=== PATIENT | male | born 1970 | race Caucasian/White ===

== ENCOUNTER 2019-08-18 16:59 | Emergency (ER) | payer BC ==
[2019-08-18 17:03] VITALS: BP 162/96; PULSE 94; RESP 18; TEMP 98
--- NOTE | 2019-08-18 17:28 | XR ---
EXAMINATION TYPE: XR knee complete LT DATE OF EXAM: 08/18/2019 COMPARISON: NONE HISTORY: Fall. Pain. TECHNIQUE: 3 views FINDINGS: I see no fracture nor dislocation. Joint spaces are normal. There is no sign of joint effus ion. IMPRESSION: Negative left knee exam.
--- NOTE | 2019-08-18 17:35 | ED ---
Lower Extremity Injury HPI - General Source: patient Mode of arrival: ambulatory Limitations: no limitations <Xochitl Shah - Last Filed: 08/19/19 00:45> <Petra Luevano - Last Filed: 08/21/19 23:26> - General Chief Complaint: Extremity Injury, Lower Stated Complaint: left knee injury Time Seen by Provider: 08/18/19 17:05 - History of Present Illness Initial Comments: 48yo male presents emergency department for chief complaint of left knee pain x 1 day. She states she has had chronic posterior pain in his knee when he works out and does squats. Patient states this been ongoing for years. Patient denies any swelling. Patient states that today at 1130 when his dog attempted to lurch at the mailroom assistant he fell to his knee. Patient states it increasing posterior knee pain denies dislocation. Patient denies pain at the hip or ankle.Patient denies head injury, loss consciousness injury to the neck back and abdomen. Patient has no other complaints denies numbness tingling loss sensation. Patient denies any redness. Patient denies any other areas of injury. Remaining review system negative. Upon small on arrival and laboratory. (Xochitl Shah) - Related Data Allergies Allergy/AdvReac Type Severity Reaction Status Date / Time No Known Allergies Allergy Verified 08/18/19 17:03 Review of Systems ROS Other: All systems not noted in ROS Statement are negative. <Xochitl Shah - Last Filed: 08/19/19 00:45> ROS Other: All systems not noted in ROS Statement are negative. <Petra Luevano - Last Filed: 08/21/19 23:26> ROS Statement: Those systems with pertinent positive or pertinent negative responses have been documented in the HPI. Past Medical History Past Medical History: Hypertension History of Any Multi-Drug Resistant Organisms: None Reported Past Surgical History: Adenoidectomy Past Psychological History: No Psychological Hx Reported Smoking Status: Former smoker Past Alcohol Use History: None Reported Past Drug Use History: None Reported <Xochitl Shah - Last Filed: 08/19/19 00:45> General Exam Limitations: no limitations <Xochitl Shah - Last Filed: 08/19/19 00:45> - General Exam Comments Initial Comments: General: The patient is awake and alert, in no distress, and does not appear acutely ill. Eye: Pupils are equal, round and reactive to light, extra-ocular movements are intact. No nystagmus. There is normal conjunctiva bilaterally. No signs of icterus. Ears, nose, mouth and throat: There are moist mucous membranes and no oral lesions. No raccoon or Medley sign. Neck: The neck is supple, there is no tenderness or JVD. Cardiovascular: There is a regular rate and rhythm. No murmur, rub or gallop is appreciated. Respiratory: Lungs are clear to auscultation, respirations are non-labored, breath sounds are equal. No wheezes, stridor, rales, or rhonchi. Musculoskeletal: Normal gross inspection of the knees bilaterally. Patient is tenderness to palpation of the posterior left knee joint. No soft tissue swelling appreciated. Patient is able to flex extend and weight-bear with the left knee. Patient has negative logroll. Patient has full range motion distal to the injury site. Sensation intact both proximal distal to injury site. Strength preserved. Compartments soft and compressible. No abrasions or large contusions or ecchymosis noted. +2 dorsalis pedis is pulses equal comparison bilaterally. Extensor mechanism intact no evidence of foot drop. Neurological: A&O x 3. CN II-XII intact grossly, There are no obvious motor or sensory deficits. Coordination appears grossly intact. Speech is normal. Skin: Skin is warm and dry and no rashes or lesions are noted. Psychiatric: Cooperative, appropriate mood & affect, normal judgment. (Xochitl Shah) Course Vital Signs 08/18/19 17:00 Temperature 98.0 F Pulse Rate 94 Respiratory 18 Rate Blood Pressure 162/96 O2 Sat by Pulse 98 Oximetry Medical Decision Making <Xochitl Shah - Last Filed: 08/19/19 00:45> <Petra Luevano - Last Filed: 08/21/19 23:26> - Medical Decision Making 48 yo male who presented for chief complaint of left knee pain. Patient denies history of fall. Patient denies dislocation. Patient neurovascularly intact. Patient states that he feels he aggravated his chronic left knee pain. Patient imaging states negative for acute osseous process. Patient is no noted laxity of the knee joint. Able to weight-bear and ambulate. At this time we will compress with Wade bandage give Rice instruction as well as orthopedic surgery follow-up. I discussed the case with a provider Dr. Luevano who i sagreeable with this plan patient discharged appearing well agreeable with care, and return parameters/follow-up. (Xochitl Shah) I was available for consultation in the emergency department. The history and p hysical exam were done by the midlevel provider. I was consulted for this patients care. I reviewed the case with the midlevel provider and based on their presentation of the patient, I agree with the assessment, medical decision making and plan of care as documented. Chart was dictated using [employer] dictation software. Attempts were made to correct any dictation errors however some typographical errors may persist. (Petra Luevano) Disposition Is patient prescribed a controlled substance at d/c from ED?: No Time of Disposition: 17:45 <Xochitl Shah - Last Filed: 08/19/19 00:45> <Petra Luevano - Last Filed: 08/21/19 23:26> Clinical Impression: Left knee pain, Left knee injury, Fall Disposition: HOME SELF-CARE Condition: Good Instructions (If sedation given, give patient instructions): Knee Sprain (ED) Additional Instructions: Please use medication as discussed. Please follow-up with family doctor in the next 2 days, if symptoms persist please seek orthopedic referral for further evaluation. Please return to emergency room if the symptoms increase or worsen or for any other concerns. Referrals: Caitlyn Wilkerson MD [Primary Care Provider] - 1-2 days
== END 2019-08-18 17:52 | disposition home or self-care (01) ==
LOC: EC 16:59
DX: S89.92XA Unspecified injury of left lower leg, initial encounter (principal); Z87.891 Personal history of nicotine dependence; W19.XXXA Unspecified fall, initial encounter; Y92.009 Unspecified place in unspecified non-institutional (private) residence as the place of occurrence of the external cause
CPT/HCPCS: 99283

== ENCOUNTER → 2019-08-31 | Outpatient (CLI) | payer BC ==
--- NOTE | 2019-08-31 14:15 | US ---
EXAMINATION TYPE: US venous doppler duplex LE LT DATE OF EXAM: 08/31/2019 2:01 PM COMPARISON: NONE CLINICAL HISTORY: left lower ext pain and swelling M79.662 R22.42. Left calf swelling. Started Xare lto today. No redness. SIDE PERFORMED: Left TECHNIQUE: The lower extremity deep venous system is examined utilizing real time linear array sonog dominic with graded compression, doppler sonography and color-flow sonography. VESSELS IMAGED: External Iliac Vein (EIV) Common Femoral Vein Deep Femoral Vein Greater Saphenous Vein * Femoral Vein Popliteal Vein Small Saphenous Vein * Proximal Calf Veins (* superficial vessels) Left Leg: Negative for DVT Grayscale, color doppler, spectral doppler imaging performed of the deep veins of the left lower extr emity. There is normal flow, compressibility, vascular waveforms. IMPRESSION: No ultrasound evidence for acute DVT in the left lower extremity.
== END ==
LOC: RADUSWWP 13:38
PROVIDERS: ATTEND Internal Medicine
DX: M79.662 Pain in left lower leg (principal); R22.42 Localized swelling, mass and lump, left lower limb

== ENCOUNTER 2020-02-15 16:46 | Emergency (ER) | payer BC ==
[2020-02-15 16:49] VITALS: TEMP 98.4
--- NOTE | 2020-02-15 17:36 | XR ---
EXAMINATION TYPE: XR chest 2V DATE OF EXAM: 02/15/2020 COMPARISON: None HISTORY: 49-year-old male with cough TECHNIQUE: PA and lateral views FINDINGS: The cardiomediastinal silhouette, aorta, and pulmonary vasculature are within normal limits. Mild str antony opacity peripheral right midlung. Otherwise, no consolidation or pleural effusion. IMPRESSION: Mild strandy opacity peripheral right midlung, probably atelectasis or scarring. Otherwise, no acute process.
--- NOTE | 2020-02-15 19:13 | ED ---
General Adult HPI - General Chief complaint: Upper Respiratory Infection Stated complaint: COUGH Time Seen by Provider: 02/15/20 16:50 Source: patient, RN notes reviewed, old records reviewed Mode of arrival: ambulatory Limitations: no limitations - History of Present Illness Initial comments: 49-year-old male patient with ED for chief complaint persistent cough for the last 6 weeks. Patient reports that the cough is dry. Patient denies any chest pain. Patient does report that he has some shortness of breath from time to time mostly with coughing. He denies any pain, fevers, nausea vomiting, or any other complaints states that the cough has not improved however. Denies any sick contacts. Systemic: Pt denies fatigue, fever/chills, rash. Pt denies weakness, night sweats, weight loss. Neuro: Pt denies headache, visual disturbances, syncope or pre-syncope. HEENT: Pt denies ocular discharge or irritation, otalgia, rhinorrhea, pharyngitis or notable lymphadenopathy. Cardiopulmonary: Pt denies chest pain, heart palpitations, dyspnea on exertion. Abdominal/GI: Pt denies abdominal pain, n/v/d. : Pt denies dysuria, burning w/ urination, frequency/urgency. Denies new onset urinary or bowel incontinence. MSK: Pt denies myalgia, loss of strength or function in extremities. Neuro: Pt denies new onset weakness, paresthesias. - Related Data Previous Rx's Medication Instructions Recorded Benzonatate [Tessalon Perles] 100 mg PO TID PRN #20 capsule 02/15/20 Allergies Allergy/AdvReac Type Severity Reaction Status Date / Time No Known Allergies Allergy Verified 02/15/20 16:49 Review of Systems ROS Statement: Those systems with pertinent positive or pertinent negative responses have been documented in the HPI. ROS Other: All systems not noted in ROS Statement are negative. Past Medical History Past Medical History: Hypertension History of Any Multi-Drug Resistant Organisms: None Reported Past Surgical History: Adenoidectomy Past Psychological History: No Psychological Hx Reported Smoking Status: Former smoker Past Alcohol Use History: None Reported Past Drug Use History: None Reported General Exam - General Exam Comments Initial Comments: Constitutional: NAD, AOX3, Pt has pleasant affect. HEENT: NC/AT, trachea midline, neck supple, no lymphadenopathy. Posterior pharynx non erythematous, without exudates. External ears appear normal, without discharge. Mucous membranes moist. Eyes PERRLA, EOM intact. There is no scleral icterus. No pallor noted. Cardiopulmonary: RRR, no murmurs, rubs or gallops, no JVD noted. Lungs CTAB in anterior and posterior chowdary. No peripheral edema. Abdominal exam: Abdomen soft and non-distended. Abdomen non-tender to palpation in all 4 quadrants. Bowel sounds active in LLQ. No hepatosplenomegaly. No ecchymosis Neuro: CN II-XII grossly intact. No nuchal rigidity. No raccon eyes, no whitfield sign, no hemotympanum. No cervical spinal tenderness. MSK: No posterior calf tenderness bilaterally, homans sign negative bilaterally. Posterior tibialis and radial pulse +2 bilaterally. Sensation intact in upper and lower extremities. Full active ROM in upper and lower extremities, 5/5 stregnth. Limitations: no limitations Course Vital Signs 02/15/20 02/15/20 16:46 17:13 Temperature 98.4 F Pulse Rate 106 H Respiratory 22 18 Rate Blood Pressure 165/93 O2 Sat by Pulse 99 Oximetry Medical Decision Making - Medical Decision Making 49-year-old male patient with a chief complaint back cough last 6 weeks. Patient vital signs are stable, afebrile. Heart rate 72 on palpation. Physical exam did not display acute pathology. Chest x-ray blade mildly the atelectasis right midline. EKG is nonischemic. Patient was offered further investigations and he declined. Pt states that he mostly wanted to know that he did not have a pneumonia. Patient will be discharged to follow up with primary care provider will be prescribed Tessalon Perles and advised to self quarantined for the next 2 weeks and return to ER if condition worsens in any way. Case discussed with Dr. Camarena - EKG Data -: EKG Interpreted by Me (and Dr. Camarena) EKG Comments: Ventricular rate 101, VA interval 172, QRS 92, QT/QTc 354/459. Sinus tachycardia, otherwise normal EKG. Disposition Clinical Impression: Cough Disposition: HOME SELF-CARE Condition: Stable Instructions (If sedation given, give patient instructions): Acute Cough (ED) Additional Instructions: Follow-up with primary care provider tomorrow. May use Tessalon Perles as needed for cough. Return to ER if condition worsens in any way. Prescriptions: Benzonatate [Tessalon Perles] 100 mg PO TID PRN #20 capsule PRN Reason: Cough Is patient prescribed a controlled substance at d/c from ED?: No Referrals: Caitlyn Wilkerson MD [Primary Care Provider] - 1-2 days
[2020-02-15 19:20] VITALS: BP 121/87; PULSE 94; RESP 20
== END 2020-02-15 19:22 | disposition home or self-care (01) ==
LOC: EC 16:46
DX: J98.11 Atelectasis (principal); Z53.29 Procedure and treatment not carried out because of patient's decision for other reasons; Z87.891 Personal history of nicotine dependence
CPT/HCPCS: 71046; 93005; 99285

== ENCOUNTER 2020-03-11 04:06 | Emergency (ER) | payer BC ==
[2020-03-11 04:13] VITALS: BP 161/100; PULSE 89; RESP 18; TEMP 97.6
--- NOTE | 2020-03-11 05:24 | XR ---
EXAMINATION TYPE: XR chest 1V portable DATE OF EXAM: 03/11/2020 COMPARISON: 02/15/2020 HISTORY: Cough TECHNIQUE: Single view FINDINGS: Heart and mediastinum are normal. Lungs are clear. Diaphragm is normal. Bony thorax is inta ct. IMPRESSION: Normal chest. No change.
[2020-03-11] MEDS ORDERED: predniSONE 20 MG TAB PO STA (06:06)
--- NOTE | 2020-03-11 06:07 | ED ---
URI HPI - General Chief Complaint: Upper Respiratory Infection Stated Complaint: Cough Source: patient Mode of arrival: ambulatory Limitations: no limitations - History of Present Illness Initial Comments: The patient is a 49-year-old male with past medical history of hypertension and depression who presents to the emergency department with reported cough for the past 5 months. He states the cough is worse at night when he lays down to sleep. She occasionally has productive sputum with yellow phlegm. Denies hemoptysis. Denies any chest pain does admit to feeling slightly short of breath. Does admit to chest wall pain from the repetitive coughing. He followed up with his primary care doctor placed him on azithromycin. States that a few days into the medication he started feeling better. He is also prescribed Tessalon Perles. States that the cough has now returned and is even worse. No history of asthma or COPD. Did quits vaping one month ago. Denies abdominal pain, nausea or vomiting. No fevers or chills. No sick contacts with similar symptoms. There are no other alleviating, precipitating or modifying factors - Related Data Previous Rx's Medication Instructions Recorded Benzonatate [Tessalon Perles] 100 mg PO TID PRN #20 capsule 02/15/20 Doxycycline Monohydrate [Monodox] 100 mg PO Q12HR #20 cap 03/11/20 guaiFENesin-Coden 100-10MG/5ML 10 ml PO Q6H PRN 3 Days #120 ml 03/11/20 [Robitussin AC] predniSONE [Deltasone] 20 mg PO BID #10 tab 03/11/20 Allergies Allergy/AdvReac Type Severity Reaction Status Date / Time No Known Allergies Allergy Verified 03/11/20 04:13 Review of Systems ROS Statement: Those systems with pertinent positive or pertinent negative responses have been documented in the HPI. ROS Other: All systems not noted in ROS Statement are negative. Past Medical History Past Medical History: Hypertension Additional Past Medical History / Comment(s): atelectasis, depression History of Any Multi-Drug Resistant Organisms: None Reported Past Surgical History: Adenoidectomy Past Psychological History: No Psychological Hx Reported Smoking Status: Former smoker Past Alcohol Use History: None Reported Past Drug Use History: None Reported General Exam Limitations: no limitations Course Vital Signs 03/11/20 04:08 Temperature 97.6 F Pulse Rate 89 Respiratory 18 Rate Blood Pressure 161/100 O2 Sat by Pulse 99 Oximetry Medical Decision Making - Medical Decision Making Upon arrival the patient is placed into room 10. A thorough history and physical exam was performed. Chest x-ray was performed which demonstrates no acute intrathoracic process. The patient is swabbed for Covid which is zachery rai. I did discuss results with the patient. I will start the patient on prednisone, doxycycline and prescribe him Robitussin-AC to take at night. He does sign an opiate start talking form. He is to continue to use his inhaler every 4 hours. He says pelvis primary care physician in 2-4 days. Return to the chart for any new or worsening symptoms. If his cough persists he may need to have a bronchoscopy therefore to give him follow up information for Dr. Jean's office. The patient remained in stable condition and was discharged home in stable condition - Lab Data Lab Results 03/11/20 Range/Units 04:40 Coronavirus (PCR) Not Detected (Not Detectd) Disposition Clinical Impression: Cough Disposition: HOME SELF-CARE Condition: Stable Instructions (If sedation given, give patient instructions): Bronchospasm (ED) Additional Instructions: Please follow up with your primary care doctor in 2-4 days. If your symptoms do not improve you may need to see a warehouse supervisor 3rd shift. Return to the emergency department for any new or worsening symptoms Prescriptions: predniSONE [Deltasone] 20 mg PO BID #10 tab Doxycycline Monohydrate [Monodox] 100 mg PO Q12HR #20 cap guaiFENesin-Coden 100-10MG/5ML [Robitussin AC] 10 ml PO Q6H PRN 3 Days #120 ml PRN Reason: Cough Is patient prescribed a controlled substance at d/c from ED?: Yes When asked, does pt state using other controlled substances?: No If prescribed controlled substance>3 days was MAPS reviewed?: Prescribed <3 Days If opioid is for acute pain is fill amount 7 days or less?: Yes If Rx opioid, was Start Talking consent form obtained?: Yes Referrals: Caitlyn Wilkerson MD [Primary Care Provider] - 1-2 days Frida Bravo MD [STAFF PHYSICIAN] - 1-2 days Time of Disposition: 06:06
== END 2020-03-11 06:17 | disposition home or self-care (01) ==
LOC: EC 04:06
DX: R05 Cough (principal); I10 Essential (primary) hypertension; R07.89 Other chest pain; Z90.89 Acquired absence of other organs; Z87.891 Personal history of nicotine dependence; Z20.828 Contact with and (suspected) exposure to other viral communicable diseases
CPT/HCPCS: 99283; 87635; 71045; J7512

== ENCOUNTER → 2021-01-26 | Outpatient (CLI) | payer OTHER ==
--- NOTE | 2021-01-26 09:40 | CT ---
EXAMINATION TYPE: CT sinus wo con DATE OF EXAM: 01/26/2021 COMPARISON: NONE HISTORY: persistent cough, nasal drainage. Chronic sinusitis. CT DLP: 698 mGycm. Automated Exposure Control for Dose Reduction was Utilized. TECHNIQUE: CT scan of the sinuses is performed without contrast, axial images are obtained, coronal r eformatted images are also reviewed. FINDINGS: Mild mucosal thickening in the right frontal sinus. Mild mucosal thickening in inferior eth moid sinuses right greater than left . Remainder paranasal sinuses clear without suspicious opacifica tion or air-fluid levels The ostiomeatal complex is narrowed bilaterally due to antral mucosal thicke eri but patent. Nasal septum is significantly deviated to right of midline. Visualized portion of mastoid air cells show no abnormal opacification. The globes are intact bilat erally. Visualized portion of brain parenchyma is unremarkable. IMPRESSION: Mild Chronic paranasal sinus disease. No acute sinusitis currently.
--- NOTE | 2021-01-26 09:52 | XR ---
EXAMINATION TYPE: XR chest 2V DATE OF EXAM: 01/26/2021 COMPARISON: 03/11/2020 HISTORY: 50-year-old male R05, cough TECHNIQUE: Frontal and lateral views FINDINGS: The cardiomediastinal silhouette, aorta, and pulmonary vasculature are within normal limits. Lungs an d pleural spaces are clear. IMPRESSION: No acute cardiopulmonary process.
== END ==
LOC: RADCTMAIN 09:07
PROVIDERS: ATTEND Otolaryngology
DX: J32.9 Chronic sinusitis, unspecified (principal)
CPT/HCPCS: 70486; 71046

== ENCOUNTER → 2023-07-20 | Day surgery (SDC) | payer OTHER ==
[2023-07-15 12:01] VITALS: BMI 31.4
[~2023-07-20] MED LIST: LACTATED RINGERS 1,000 ML IV SCH; LIDOCAINE 1% (10MG/ML) FOR IV START INTRADERMA PRN; LIDOCAINE 2% INJ 20 MG/ML (2 ML VIAL) ONE; MIDAZOLAM 2 MG/2 ML VIAL ONE; PROPOFOL 10 MG/ML 20 ML VIAL IV ONE; fentaNYL (PF) 50 MCG/ML 2 ML AMP ONE
[2023-07-20 10:51] VITALS: TEMP 97
--- NOTE | 2023-07-20 12:13 | P.PCN ---
Date of Procedure: 07/20/23 Procedure(s) Performed: BRIEF HISTORY: Patient is a 52-year-old pleasant white male scheduled for an elective colonoscopy as a part of screening for colon cancer. PROCEDURE PERFORMED: Colonoscopy. PREOPERATIVE DIAGNOSIS: Screening for colon cancer. IV sedation per Anesthesia. PROCEDURE: After informed consent was obtained, the patient, was brought into the endoscopy unit. IV sedation was administered by Anesthesia under continuous monitoring. Digital rectal examination was normal. Initially the Olympus CF-160 flexible video colonoscope was then inserted in the rectum, gradually advanced into the cecum without any difficulty. Careful examination was performed as the scope was gradually being withdrawn. Ileocecal valve and the appendiceal orifice were visualized and appeared normal. Prep was excellent. Mucosa of the cecum, ascending colon, transverse colon, descending colon, sigmoid colon, and rectum appeared normal. Retroflexion was performed in the rectum and no lesions were seen. The patient tolerated the procedure well. IMPRESSION: Normal-appearing colon from rectum to cecum with no evidence of colorectal neoplasia . RECOMMENDATIONS: Findings of this examination were discussed with the patient as well as his family. He was advised to have a repeat screening colonoscopy in 10 years..
[2023-07-20 13:01] VITALS: BP 138/86; PULSE 72; RESP 18
== END ==
LOC: ORWHC2ENDO 10:33
PROVIDERS: ATTEND Internal Medicine Gastroenterology
DX: Z12.11 Encounter for screening for malignant neoplasm of colon (principal); I10 Essential (primary) hypertension; Z79.899 Other long term (current) drug therapy
CPT/HCPCS: 45378; J2250; J3010; J2704; J2001

== ENCOUNTER 2023-10-13 08:39 | Emergency (ER) | payer OTHER ==
[2023-10-13 08:51] VITALS: BP 152/92; PULSE 84; TEMP 97.6
[2023-10-13] MEDS ORDERED: dexAMETHasone 2 MG TAB PO STA (09:03)
--- NOTE | 2023-10-13 09:06 | ED ---
General Adult HPI - General Chief complaint: Upper Respiratory Infection Stated complaint: Sore Throat Source: patient Mode of arrival: ambulatory Limitations: no limitations - History of Present Illness Initial comments: 52 year old healthy male presents with cough, congestion, loss of voice. states symptoms have been present for 4 days. he went to urgent care for symptoms yes terday. today he had loss of voice and was unable to clear the thick secreations from his airway so he came into ED. denies fevers. no vomiting. mild sore throat. - Related Data Home Medications Medication Instructions Recorded Confirmed DULoxetine HCL [Cymbalta] 60 mg PO DAILY 07/15/23 07/20/23 Finasteride [Propecia] 1 mg PO DAILY 07/15/23 07/20/23 amLODIPine [Norvasc] 5 mg PO DAILY 07/15/23 07/20/23 atenoloL [Tenormin] 25 mg PO DAILY 07/15/23 07/20/23 lamoTRIgine [LaMICtal] 25 mg PO DAILY 07/15/23 07/20/23 Allergies Allergy/AdvReac Type Severity Reaction Status Date / Time No Known Allergies Allergy Verified 10/13/23 08:44 Review of Systems ROS Statement: Those systems with pertinent positive or pertinent negative responses have been documented in the HPI. ROS Other: All systems not noted in ROS Statement are negative. Past Medical History Past Medical History: Hypertension Additional Past Medical History / Comment(s): atelectasis History of Any Multi-Drug Resistant Organisms: None Reported Past Surgical History: Adenoidectomy Past Anesthesia/Blood Transfusion Reactions: No Reported Reaction Past Psychological History: Depression Smoking Status: Former smoker Past Alcohol Use History: None Reported Past Drug Use History: None Reported - Past Family History Mother Family Medical History: Cancer General Exam Limitations: no limitations General appearance: alert, in no apparent distress Head exam: Present: atraumatic, normocephalic, normal inspection Eye exam: Present: normal appearance, PERRL, EOMI. Absent: scleral icterus, conjunctival injection, periorbital swelling ENT exam: Present: normal exam, mucous membranes moist, other (hoarse voice. airway patent) Neck exam: Present: normal inspection. Absent: tenderness, meningismus, lymphadenopathy Respiratory exam: Present: normal lung sounds bilaterally. Absent: respiratory distress, wheezes, rales, rhonchi, stridor Cardiovascular Exam: Present: regular rate, normal rhythm, normal heart sounds. Absent: systolic murmur, diastolic murmur, rubs, gallop, clicks GI/Abdominal exam: Present: soft, normal bowel sounds. Absent: distended, tenderness, guarding, rebound, rigid Extremities exam: Present: normal inspection, full ROM, normal capillary refill. Absent: tenderness, pedal edema, joint swelling, calf tenderness Back exam: Present: normal inspection Neurological exam: Present: alert, oriented X3, CN II-XII intact Psychiatric exam: Present: normal affect, normal mood Skin exam: Present: warm, dry, intact, normal color. Absent: rash Course Vital Signs 10/13/23 10/13/23 08:40 09:32 Temperature 97.6 F Pulse Rate 84 Respiratory 20 18 Rate Blood Pressure 152/92 O2 Sat by Pulse 99 Oximetry Medical Decision Making - Medical Decision Making Was pt. sent in by a medical professional or institution (, PA, ASSEMBLY TECHNICIAN, urgent care, hospital, or senior living...) When possible be specific @ -No Did you speak to anyone other than the patient for history (EMS, parent, family, police, friend...)? What history was obtained from this source @ -No Did you review nursing and triage notes (agree or disagree)? Why? @ -I reviewed and agree with nursing and triage notes Were old charts reviewed (outside hosp., previous admission, EMS record, old EKG, old radiological studies, urgent care reports/EKG's, senior living records)? Report findings @ -no Differential Diagnosis (chest pain, altered mental status, abdominal pain women, abdominal pain men, vaginal bleeding, weakness, fever, dyspnea, syncope, heada bolivar, dizziness, GI bleed, back pain, seizure, CVA, palpatations, mental health, musculoskeletal)? @ -covid, flu, pna, strep, viral uri EKG interpreted by me (3pts min.). @ -no X-rays interpreted by me (1pt min.). @ -None done CT interpreted by me (1pt min.). @ -none done U/S interpreted by me (1pt. min.). @ -None done What testing was considered but not performed or refused? (CT, X-rays, U/S, labs)? Why? @ -viral swab - pt refused What meds were considered but not given or refused? Why? @ -None Did you discuss the management of the patient with other professionals (professionals i.e. , PA, ASSEMBLY TECHNICIAN, lab, RT, psych nurse, social media campaign manager, general hardware salesperson, teacher, chairman & chief executive officer, piano case and bench assembler)? Give summary @ -no Was smoking cessation discussed for >3mins.? @ -No Was critical care preformed (if so, how long)? @ -No Were there social determinants of health that impacted care today? How? (Homelessness, low income, unemployed, alcoholism, drug addiction, transportation, low edu. Level, literacy, decrease access to med. care, [facility], rehab)? @ -No Was there de-escalation of care discussed even if they declined (Discuss DNR or withdrawal of care, Hospice)? DNR status @ -No What co-morbidities impacted this encounter? (DM, HTN, Smoking, COPD, CAD, Cancer, CVA, ARF, Chemo, Hep., AIDS, mental health diagnosis, sleep apnea, morbid obesity)? @ -none Was patient admitted / discharged? Hospital course, mention meds given and route, prescriptions, significant lab abnormalities, going to OR and other pertinent info. @ -discharged. pt refused viral swab, agreeable to a dose of decadron. his airway is patent. he has no respiratory distress. he would like no futher workup. patient discharged ins stable condition Undiagnosed new problem with uncertain prognosis? @ -No Drug Therapy requiring intensive monitoring for toxicity (Heparin, Nitro, Insulin, Cardizem)? @ -No Were any procedures done? @ -No Diagnosis/symptom? @ -acute pharyngitis, acute laryngitis, viral uri Acute, or Chronic, or Acute on Chronic? @ -acute Uncomplicated (without systemic symptoms) or Complicated (systemic symptoms)? @ -complicated Side effects of treatment? @ -No Exacerbation, Progression, or Severe Exacerbation? @ -No Poses a threat to life or bodily function? How? (Chest pain, [place], [place], pneumonia, PE, COPD, DKA, ARF, appy, cholecystitis, CVA, Diverticulitis, Homicidal, Suicidal, threat to staff... and all critical care pts) @ -No Disposition Clinical Impression: Upper respiratory tract infection Disposition: HOME SELF-CARE Condition: Stable Instructions (If sedation given, give patient instructions): Upper Respiratory Infection (ED) Additional Instructions: Continue taking the cough syrup as needed. Return should you have any new or worsening symptoms Is patient prescribed a controlled substance at d/c from ED?: No Referrals: Anselmo Dietz DO [Primary Care Provider] - 1-2 days Time of Disposition: 09:06
[2023-10-13 09:38] VITALS: RESP 18
== END 2023-10-13 09:34 | disposition home or self-care (01) ==
LOC: EC 08:39
DX: J06.9 Acute upper respiratory infection, unspecified (principal); I10 Essential (primary) hypertension; F32.A Depression, unspecified; Z87.891 Personal history of nicotine dependence; Z79.899 Other long term (current) drug therapy
CPT/HCPCS: 99283; J8540

== ENCOUNTER 2023-10-15 20:25 | Emergency (ER) | payer OTHER ==
[2023-10-15 20:51] VITALS: BP 151/90; PULSE 84; RESP 18; TEMP 97.8
[2023-10-15] MEDS ORDERED: predniSONE 20 MG TAB PO STA (20:55)
[2023-10-15] MEDS ORDERED: AMOXIC-POT CLAV 875-125MG 1 EACH TAB PO STA (20:55)
--- NOTE | 2023-10-15 20:56 | ED ---
URI HPI - General Chief Complaint: Upper Respiratory Infection Stated Complaint: SOB,Cough Time Seen by Provider: 10/15/23 20:35 Source: patient Mode of arrival: ambulatory Limitations: no limitations - History of Present Illness Initial Comments: 52-year-old male presenting with chief complaint of cough and congestion. Patient was seen here recently and states that his symptoms have been worsening. Symptoms have been ongoing for a total of about 7-8 days. He reports copious mucus production which he is having difficulty expelling. States that sometimes he feels overwhelmed by the amount of mucus and has difficulty clearing it. he admits to sinus pain and pressure. No fevers or chills. Admits to ear pressure bilaterally. No chest pain or palpitations. No nausea vomiting or diarrhea. - Related Data Home Medications Medication Instructions Recorded Confirmed DULoxetine HCL [Cymbalta] 60 mg PO DAILY 07/15/23 07/20/23 Finasteride [Propecia] 1 mg PO DAILY 07/15/23 07/20/23 amLODIPine [Norvasc] 5 mg PO DAILY 07/15/23 07/20/23 atenoloL [Tenormin] 25 mg PO DAILY 07/15/23 07/20/23 lamoTRIgine [LaMICtal] 25 mg PO DAILY 07/15/23 07/20/23 Previous Rx's Medication Instructions Recorded Albuterol Sulfate [Albuterol 2 puff PO Q6H PRN #8.5 gm 10/15/23 Sulfate Hfa] Amoxic-Pot Clav 875-125Mg 1 tab PO Q12HR 7 Days #14 tab 10/15/23 [Augmentin 875-125] methylPREDNISolone Dose Pack 4 mg PO DIRECTED #1 packet 10/15/23 [Medrol Dose Pack] Allergies Allergy/AdvReac Type Severity Reaction Status Date / Time No Known Allergies Allergy Verified 10/15/23 20:32 Review of Systems ROS Statement: Those systems with pertinent positive or pertinent negative responses have been documented in the HPI. ROS Other: All systems not noted in ROS Statement are negative. Past Medical History Past Medical History: Hypertension Additional Past Medical History / Comment(s): atelectasis History of Any Multi-Drug Resistant Organisms: None Reported Past Surgical History: Adenoidectomy Past Anesthesia/Blood Transfusion Reactions: No Reported Reaction Past Psychological History: Depression Smoking Status: Former smoker Past Alcohol Use History: None Reported Past Drug Use History: None Reported - Past Family History Mother Family Medical History: Cancer General Exam Limitations: no limitations General appearance: alert, in no apparent distress Head exam: Present: atraumatic, normocephalic, normal inspection Eye exam: Present: normal appearance, EOMI ENT exam: Present: normal oropharynx, mucous membranes moist, TM's normal bilaterally, other (Pressure on palpation of the mastoid sinuses bilaterally) Neck exam: Present: normal inspection, full ROM Respiratory exam: Present: normal lung sounds bilaterally. Absent: respiratory distress, wheezes, rales, rhonchi, stridor Cardiovascular Exam: Present: regular rate, normal rhythm, normal heart sounds. Absent: systolic murmur, diastolic murmur, rubs, gallop, clicks Neurological exam: Present: alert, oriented X3 Psychiatric exam: Present: normal affect, normal mood Skin exam: Present: warm, dry, intact, normal color. Absent: rash Course Vital Signs 10/15/23 20:30 Temperature 97.8 F Pulse Rate 84 Respiratory 18 Rate Blood Pressure 151/90 O2 Sat by Pulse 97 Oximetry Medical Decision Making - Medical Decision Making Was pt. sent in by a medical professional or institution (, PA, SCHOOL COOK, urgent care, hospital, or custodial...) When possible be specific @ -No Did you speak to anyone other than the patient for history (EMS, parent, family, police, friend...)? What history was obtained from this source @ -No Did you review nursing and triage notes (agree or disagree)? Why? @ -I reviewed and agree with nursing and triage notes Were old charts reviewed (outside hosp., previous admission, EMS record, old EKG, old radiological studies, urgent care reports/EKG's, custodial records)? Report findings @ -Reviewed documentation from recent visit Differential Diagnosis (chest pain, altered mental status, abdominal pain women, abdominal pain men, vaginal bleeding, weakness, fever, dyspnea, syncope, headache, dizziness, GI bleed, back pain, seizure, CVA, palpatations, mental health, musculoskeletal)? @ -Differential includes sinusitis, bronchitis, ALLERGIES, this is not an all inclusive list EKG interpreted by me (3pts min.). @ -As above X-rays interpreted by me (1pt min.). @ -None done CT interpreted by me (1pt min.). @ -None done U/S interpreted by me (1pt. min.). @ -None done What testing was considered but not performed or refused? (CT, X-rays, U/S, labs)? Why? @ -None What meds were considered but not given or refused? Why? @ -None Did you discuss the management of the patient with other professionals (professionals i.e. , PA, SCHOOL COOK, lab, RT, psych nurse, licensed master social worker, military lawyer, teacher, unarmed security officer, case folder)? Give summary @ -No Was smoking cessation discussed for >3mins.? @ -No Was critical care preformed (if so, how long)? @ -No Were there social determinants of health that impacted care today? How? (Homelessness, low income, unemployed, alcoholism, drug addiction, transportation, low edu. Level, literacy, decrease access to med. care, [facility], rehab)? @ -No Was there de-escalation of care discussed even if they declined (Discuss DNR or withdrawal of care, Hospice)? DNR status @ -No What co-morbidities impacted this encounter? (DM, HTN, Smoking, COPD, CAD, Cancer, CVA, ARF, Chemo, Hep., AIDS, mental health diagnosis, sleep apnea, morbid obesity)? @ -None Was patient admitted / discharged? Hospital course, mention meds given and route, prescriptions, significant lab abnormalities, going to OR and other pertinent info. @ -52-year-old male presenting with chief complaint of sinus pain and pressure, cough, congestion. He reports copious amounts of purulent mucus. He was seen here recently and states that since then his symptoms have worsened. History and physical exam were conducted. Heart and lungs clear to auscultation. Patient has been symptomatic for 7-8 days. He'll be treated for sinusitis with Augmentin. Provided with Medrol Dosepak as well. He his first dose of Augmentin and 60 mg of prednisone here in the ER. Follow-up with PCP. Report back to ER with any new or worsening symptoms. Discussed return parameters and answered all questions. Patient conveyed verbal understanding and agreed to the plan. I discussed this case in detail with my attending Dr. Gross Undiagnosed new problem with uncertain prognosis? @ -No Drug Therapy requiring intensive monitoring for toxicity (Heparin, Nitro, Insulin, Cardizem)? @ -No Were any procedures done? @ -No Diagnosis/symptom? @ -Sinusitis Acute, or Chronic, or Acute on Chronic? @ -Acute Uncomplicated (without systemic symptoms) or Complicated (systemic symptoms)? @ -Complicated Side effects of treatment? @ -No Exacerbation, Progression, or Severe Exacerbation? @ -No Poses a threat to life or bodily function? How? (Chest pain, [place], [place], pneumonia, PE, COPD, DKA, ARF, appy, cholecystitis, CVA, Diverticulitis, Homicidal, Suicidal, threat to staff... and all critical care pts) @ -No Disposition Clinical Impression: Sinusitis Disposition: HOME SELF-CARE Condition: Good Instructions (If sedation given, give patient instructions): Sinusitis (ED) Additional Instructions: Follow-up with PCP. Report back to ER with any new or worsening symptoms. Prescriptions: Albuterol Sulfate [Albuterol Sulfate Hfa] 2 puff PO Q6H PRN #8.5 gm PRN Reason: Shortness Of Breath Amoxic-Pot Clav 875-125Mg [Augmentin 875-125] 1 tab PO Q12HR 7 Days #14 tab methylPREDNISolone Dose Pack [Medrol Dose Pack] 4 mg PO DIRECTED #1 packet Is patient prescribed a controlled substance at d/c from ED?: No Referrals: Anselmo Dietz DO [Primary Care Provider] - 1-2 days Time of Disposition: 20:55
== END 2023-10-15 21:34 | disposition home or self-care (01) ==
LOC: EC 20:25
DX: J32.9 Chronic sinusitis, unspecified (principal); I10 Essential (primary) hypertension; Z86.59 Personal history of other mental and behavioral disorders; Z87.891 Personal history of nicotine dependence; Z79.899 Other long term (current) drug therapy
CPT/HCPCS: 99285; J7512

== ENCOUNTER → 2025-01-08 | Outpatient (CLI) | payer OTHER ==
[2025-01-08 12:49] LABS: Chol/HDL Ratio 5.75 Ratio; LDL Cholesterol,Calculated 105.7 mg/dL (0.0-131.0)
== END | disposition home or self-care (01) ==
LOC: LABWHC1 06:53
PROVIDERS: ATTEND Family Medicine
DX: E78.1 Pure hyperglyceridemia (principal)
CPT/HCPCS: 36415; 80061